=== PATIENT | female | born 1965 | race Two or more races ===

== ENCOUNTER 2019-05-22 09:00 | Inpatient (IN) | payer OTHER ==
[~2019-05-22] VITALS: Ht 160 cm; Wt 79.8 kg
[~2019-05-22 09:00] MED LIST: LIRICA; PERCOCET 10-3251 TAB PO; ULTRACET; [UNRECOGNIZED DRUG - OTHER]
[2019-05-28] MEDS ORDERED: [UNRECOGNIZED DRUG - OTHER] PO (11:50)
[2019-05-28] MEDS ORDERED: AMBIEN10 MG PO (11:51)
[2019-05-28] MEDS ORDERED: TOPAMAX50 MG PO (11:51)
[2019-05-28] MEDS ORDERED: SYNTHROID50 MCG PO (11:51)
[2019-05-28] MEDS ORDERED: CARDIZEM LA120 MG PO (11:51)
[2019-06-04] MEDS ORDERED: KETOROLAC60 MG/2 M1 IM (08:52)
[2019-06-04] MEDS ORDERED: PANTOPRAZOLE SO40 MG PO (08:53)
[2019-06-04] MEDS ORDERED: ULTRACET (08:54)
[2019-06-04] MEDS ORDERED: AMITRIPTYLINE H75 MG (08:55)
[2019-06-04] MEDS ORDERED: MEDROLPACK PO (15:11)
[2019-06-04] MEDS ORDERED: CLONAZEPAM0.5 MG PO (15:11)
[2019-06-04] MEDS ORDERED: PERCOCET 5-3251 EACH PO (15:11)
[2019-06-04] MEDS ORDERED: COLACE100 MG PO (15:11)
== END 2019-06-05 12:42 | disposition home or self-care (01) | DRG 473 ==
LOC: O/R 06-04 04:47 → SURH 06-04 09:00 → SURG 06-04 16:02
PROVIDERS: ADMIT Orthopaedic Surgery Orthopaedic Surgery of the Spine
PROC: 0RT30ZZ Resection of Cervical Vertebral Disc, Open Approach (ICD-10-PCS; 2019-06-04)
PROC: 07DS3ZZ Extraction of Vertebral Bone Marrow, Percutaneous Approach (ICD-10-PCS; 2019-06-04)
PROC: 0RG20A0 Fusion of 2 or more Cervical Vertebral Joints with Interbody Fusion Device, Anterior Approach, Anterior Column, Open Approach (ICD-10-PCS; principal; 2019-06-04 13:00)
DX: M50.31 Other cervical disc degeneration, high cervical region (principal); M54.12 Radiculopathy, cervical region; E03.8 Other specified hypothyroidism; I10 Essential (primary) hypertension